=== PATIENT | female | born 1965 | race Caucasian/White ===

== ENCOUNTER 2020-06-15 11:41 | Emergency (ER) | payer OTHER ==
[~2020-06-15] VITALS: Ht 170.2 cm; Wt 77.2 kg
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
[2020-06-15 13:04] LABS: CALCIUM 9.2 mg/dL (8.5-10.1); CREATININE 1.1 mg/dL (0.6-1.0); POTASSIUM 3.3 mmol/L (3.5-5.1)
--- NOTE | 2020-06-15 13:34 | RAD ---
EXAM: Pelvis, single view. HISTORY: Fall. COMPARISON: None. FINDINGS: A frontal view the pelvis is obtained. There is no fracture, dislocation or subluxation. Th e femoral heads are normal in configuration. IMPRESSION: No acute osseous finding. Electronically signed by: Divina Robles MD (06/15/2020 1:31 PM) [id number]
--- NOTE | 2020-06-15 13:34 | RAD ---
XR CHEST 1V History: Reason: FALL / Spl. Instructions: / History: . Pain Comparison: None. Findings: Low lung volumes. Patchy bibasilar opacities. No pleural effusion. No pneumothorax. Prior median ster notomy. Impression: 1. Low lung volumes with patchy bibasilar opacities, likely atelectasis. Electronically signed by: Reilly Hull DO (06/15/2020 1:31 PM) [id number]
[2020-06-15 14:08] VITALS: BP 149/65
--- NOTE | 2020-06-15 15:00 | EKG ---
[address] [address] Test Date: 2020-06-15 Test Time: 12:08:52 Pat Name: jez serrano Department: Room: Gender: F Sleeve Machine Tender: JEANNETTE : 1965 Requested By: GABY HENSON Order Number: [id number] Reading MD: Measurements Intervals [place] Rate: 86 P: 34 TN: 172 QRS: -23 QRSD: 98 T: 140 QT: 418 QTc: 504 Interpretive Statements SINUS RHYTHM LEFTWARD AXIS LVH WITH REPOLARIZATION ABNORMALITY PROLONGED QT ABNORMAL ECG RI6.02 No previous ECG available for comparison
== END 2020-06-15 14:10 | disposition home or self-care (01) ==
LOC: ER 11:41
DX: Z04.3 Encounter for examination and observation following other accident (principal); I25.810 Atherosclerosis of coronary artery bypass graft(s) without angina pectoris; E11.9 Type 2 diabetes mellitus without complications; E78.00 Pure hypercholesterolemia, unspecified; I11.9 Hypertensive heart disease without heart failure; F41.9 Anxiety disorder, unspecified; Z86.73 Personal history of transient ischemic attack (TIA), and cerebral infarction without residual deficits; Z88.0 Allergy status to penicillin; Z88.1 Allergy status to other antibiotic agents; W18.39XA Other fall on same level, initial encounter; Y93.89 Activity, other specified; Y92.89 Other specified places as the place of occurrence of the external cause; Y99.8 Other external cause status
CPT/HCPCS: 36415; 71045; 72170; 80048; 84484; 93005; 99285-25

== ENCOUNTER 2020-08-09 12:32 | Emergency (ER) | payer OTHER ==
[~2020-08-09] VITALS: Ht 170.2 cm; Wt 115.2 kg
--- NOTE | 2020-08-09 12:48 | RAD ---
EXAM: CT Head without IV contrast INDICATION: Reason: stroke / Spl. Instructions: / History: TECHNIQUE: Multi-detector row CT images were obtained of the head without the use of IV contrast. All CT scans performed at this facility utilize dose optimization techniques as appropriate to the exam, including the following: Automated exposure control and adjustment of the mA and/or KV according to patient size (this includes techniques or standardized protocols for targeted exams where dose is ind ication/reason for exam). COMPARISON: None FINDINGS: BRAIN PARENCHYMA: No evidence of acute intraparenchymal hemorrhage or infarct. Generalized parenchyma l volume loss and white matter low density compatible with chronic ischemic microvascular change. Enc ephalomalacia in the paramedian superior right frontal lobe, compatible with a chronic CAL territory infarct. VENTRICLES & EXTRA-AXIAL SPACES: Ventricles are within normal limits. Basilar cisterns are patent. N o pathologic extra-axial fluid collection or mass. ORBITS: Orbital contents are unremarkable. SINUSES: Visualized paranasal sinuses and mastoid air cells are clear. OSSEOUS & SOFT TISSUES: Calvarium and skull base are intact. IMPRESSION: No acute intracranial pathology. FOR INTERNAL CODING PURPOSES Critical result: Findings discussed with Dr. Lisha Agarwal at 08/09/2020 12:43 PM. RESULT CODE: (C) Electronically signed by: Augustine Jordan MD (08/09/2020 12:45 PM) [id number]
[2020-08-09 13:15] LABS: BASO % 0 % (0-3); EOS # 0.3 x10^3/uL (0.0-0.7); EOS % 3 % (0-3); HEMATOCRIT 38.4 % (36.0-47.0); HEMOGLOBIN 12.8 g/dL (12.0-15.5); LYMPH # 1.8 x10^3/uL (1.0-4.8); LYMPH % 18 % (24-48); MEAN CORPUSCULAR HEMOGLOBIN 27 pg (25-35); MEAN CORPUSCULAR HGB CONC 33 g/dL (31-37); MEAN CORPUSCULAR VOLUME 81 fL (79-100); MONO # 0.5 x10^3/uL (0.0-1.1); MONO % 5 % (0-9); NEUT # 7.3 x10^3uL (1.8-7.7); NEUT % 74 % (31-73); PLATELET COUNT 325 x10^3/uL (140-400); RED BLOOD COUNT 4.77 x10^6/uL (3.50-5.40); RED CELL DISTRIBUTION WIDTH 16.3 % (11.5-14.5); WHITE BLOOD COUNT 9.9 x10^3/uL (4.0-11.0)
--- NOTE | 2020-08-09 13:15 | RAD ---
INDICATION: Reason: ALTERED MENTAL STATUS / Spl. Instructions: / History: COMPARISON: June 15, 2020 FINDINGS: Single view of chest obtained. Cardiomediastinal silhouette is enlarged with poststernotomy changes and surgical clips at the medias tinum. Hypoexpanded exam without a definite new region of consolidation. IMPRESSION: * Similar exam compared to prior without a new region of consolidation. Electronically signed by: Catrachito Stovall MD (08/09/2020 1:12 PM) [id number]
[2020-08-09] MEDS ORDERED: IV NORMAL SALINE 1,000ML 1,000 ML IV ONE (13:30)
[2020-08-09] MEDS ORDERED: ONDANSETRON PF 4 MG/2 ML VIAL. ONE (13:59)
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
[2020-08-09] MEDS ORDERED: IOHEXOL 300 MG/ML 75 ML VIAL. IV ONE (14:00)
[2020-08-09] MEDS ORDERED: ONDANSETRON PF 4 MG/2 ML VIAL. IVP ONE (14:00)
[2020-08-09 14:21] LABS: CREATININE 0.6 mg/dL (0.6-1.0); GFR 104.6
[2020-08-09 14:23] LABS: BACTERIA,URINE 0 /HPF (0-FEW); BILIRUBIN,URINE NEG (NEG); CLARITY,URINE CLEAR; COLOR,URINE COLORLESS; GLUCOSE,URINE 500 mg/dL (NEG); NITRITE,URINE NEG (NEG); RBC,URINE 0 /HPF (0-2); UROBILINOGEN,URINE 0.2 mg/dL (0.2 mg/dL); WBC,URINE 0 /HPF (0-4)
[2020-08-09 14:31] LABS: CALCIUM 6.7 mg/dL (8.5-10.1)
[2020-08-09 14:34] LABS: POTASSIUM 2.8 mmol/L (3.5-5.1)
[2020-08-09 14:42] LABS: ALBUMIN 1.5 g/dL (3.4-5.0); ALBUMIN/GLOBULIN RATIO 0.4 (1.0-1.7); MAGNESIUM 1.6 mg/dL (1.8-2.4); TOTAL BILIRUBIN 0.2 mg/dL (0.2-1.0)
--- NOTE | 2020-08-09 14:45 | EKG ---
[address] [address] Test Date: 2020-08-09 Test Time: 12:42:26 Pat Name: EKATERINA SOUTH Department: Room: Gender: F Personal Financial Counselor: JEANNETTE : 1965 Requested By: DOMONIQUE BRISCOE Order Number: [id number] Reading MD: Measurements Intervals [place] Rate: 77 P: 232 MO: 112 QRS: -26 QRSD: 96 T: 138 QT: 380 QTc: 432 Interpretive Statements SINUS RHYTHM LEFTWARD AXIS LVH WITH REPOLARIZATION ABNORMALITY ABNORMAL ECG RI6.02 No previous ECG available for comparison
[2020-08-09] MEDS: POTASSIUM CHLORIDE 20MEQ 100 ML IV SCH ×2 (14:48→16:37)
--- NOTE | 2020-08-09 14:55 | RAD ---
INDICATION: Reason: perineal infection / Spl. Instructions: / History: . COMPARISON: None. TECHNIQUE: Axial CT images obtained through the abdomen and pelvis with contrast. One or more of the following individualized dose reduction techniques were utilized for this examinat ion: 1. Automated exposure control; 2. Adjustment of the mA and/or kV according to patient size; 3 . Use of iterative reconstruction technique. FINDINGS: Postoperative changes to the sternum status post sternotomy. Partial visualization of coronary artery calcific atherosclerosis. Atherosclerotic disease throughout the abdominal aorta without aneurysmal dilatation. Fat-containing left greater than right inguinal hernia. Prominent lymph nodes within the groin bilaterally. Regional low density adjacent to falciform ligament at the liver which is commonly from focal fat. Layering high density material in the gallbladder which could be from stones and sludge. No peripancreatic fluid collection. Prominent lymph nodes at the upper abdomen including portacaval. Lobulation of the spleen. Calcified granuloma within. Subcentimeter suspected fat-containing left renal lesion which could be from causes such as angiomyol ipoma. Urinary bladder is partially distended. No hydronephrosis. Fat-containing umbilical hernia. Uterus is visualized. No periappendiceal inflammatory changes. Small amount haziness to the fact adjacent to the rectal and anal region bilaterally within the perin eum. No drainable fluid collection is seen at this time with some prominence the rectal wall but not very distended. No dilated loops of bowel to suggest obstruction. Degenerative changes of the spine. IMPRESSION: * No evidence of bowel obstruction or appendicitis. * Mild haziness to the fat adjacent to the anorectal region. Nonspecific in nature but would correla te with symptoms given that causes such as proctitis could have this appearance. Electronically signed by: Catrachito Stovall MD (08/09/2020 2:52 PM) [id number]
[2020-08-09] MEDS ORDERED: INSULIN REGULAR 100 UNIT/ML 3ML VIAL. IV ONE (15:30)
[2020-08-09] MEDS ORDERED: METOCLOPRAMIDE HCL 10 MG/2 ML VIAL. ONE (15:37)
[2020-08-09] MEDS ORDERED: METOCLOPRAMIDE HCL 10 MG/2 ML VIAL. IVP ONE (15:45)
[2020-08-09 17:16] VITALS: BP 186/95
[2020-08-09] MEDS ORDERED: FLUCONAZOLE 200MG/100ML PREMIX 100 ML IV SCH (17:45)
[2020-08-09] MEDS ORDERED: VANCOMYCIN 2 GM in IV NORMAL SALINE 500ML 500 ML IV SCH (18:15)
[2020-08-09] MEDS ORDERED: chlorproMAZINE IM 50 MG/2 ML AMPUL IM ONE (18:15)
== END 2020-08-09 18:20 | disposition short-term general hospital (02) ==
LOC: ER 12:32
DX: R41.82 Altered mental status, unspecified (principal); E87.6 Hypokalemia; E11.65 Type 2 diabetes mellitus with hyperglycemia; F41.9 Anxiety disorder, unspecified; I25.810 Atherosclerosis of coronary artery bypass graft(s) without angina pectoris; I11.0 Hypertensive heart disease with heart failure; I50.9 Heart failure, unspecified; E11.9 Type 2 diabetes mellitus without complications; E78.00 Pure hypercholesterolemia, unspecified; Z86.73 Personal history of transient ischemic attack (TIA), and cerebral infarction without residual deficits; Z88.0 Allergy status to penicillin; Z88.1 Allergy status to other antibiotic agents
CPT/HCPCS: 36415; 51702; 70450; 71045; 74177; 80053; 81001; 82803; 82947; 83605; 83735; 83880; 84484; 85025; 93005; 96365; 96366; 96375; 99285; J1450; J1815; J2405; J2765; J3370; J3480; J7030; J7040; Q9967

== ENCOUNTER → 2020-12-06 | Outpatient (CLI) | payer OTHER ==
--- NOTE | 2020-12-06 11:41 | RAD ---
EXAM: RIGHT UPPER QUADRANT ULTRASOUND. HISTORY: Elevated liver enzymes. COMPARISON: None. FINDINGS: Sonographic evaluation of the right upper quadrant was performed. Hyperechogenicity of the hepatic parenchyma is consistent with diffuse hepatic steatosis. The liver i s at least mildly enlarged spanning 18.5 cm. There are no focal lesions. The gallbladder is unremarkable without evidence of stones, wall thickening or pericholecystic fluid. There is no sonographic Spring sign. The common duct measures 4 mm. Limited images of the visualize d portions of the head of the pancreas reveal no abnormality. The right kidney measures 11.0 cm. Cortical thickness and echogenicity are preserved. There is no hyd ronephrosis. The visualized portions of the abdominal aorta and inferior vena cava are grossly patent and normal i n caliber. IMPRESSION: 1. At least mild diffuse hepatic steatosis and hepatomegaly. Electronically signed by: Quinten Pelayo MD (12/06/2020 11:39 AM) [id number]
== END ==
LOC: US 09:33
PROVIDERS: ATTEND Family Medicine
DX: K76.0 Fatty (change of) liver, not elsewhere classified (principal); R16.0 Hepatomegaly, not elsewhere classified; R74.8 Abnormal levels of other serum enzymes
CPT/HCPCS: 76705

== ENCOUNTER 2021-05-17 12:18 | Emergency (ER) | payer OTHER ==
[~2021-05-17] VITALS: Ht 160 cm; Wt 114.0 kg
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
[2021-05-17 13:49] LABS: CREATININE 1.3 mg/dL (0.6-1.0); GFR 42.7
[2021-05-17 13:54] LABS: MAGNESIUM 2.5 mg/dL (1.8-2.4); TOTAL BILIRUBIN 0.4 mg/dL (0.2-1.0); TOTAL PROTEIN 7.3 g/dL (6.4-8.2)
[2021-05-17 14:07] LABS: ALBUMIN 2.3 g/dL (3.4-5.0); ALBUMIN/GLOBULIN RATIO 0.5 (1.0-1.7)
[2021-05-17 14:08] LABS: POTASSIUM 4.4 mmol/L (3.5-5.1)
[2021-05-17 14:18] LABS: BASO # 0.1 x10^3/uL (0.0-0.2); BASO % 1 % (0-3); EOS # 0.2 x10^3/uL (0.0-0.7); EOS % 2 % (0-3); HEMATOCRIT 37.1 % (36.0-47.0); HEMOGLOBIN 12.7 g/dL (12.0-15.5); LYMPH # 2.4 x10^3/uL (1.0-4.8); LYMPH % 19 % (24-48); MEAN CORPUSCULAR HEMOGLOBIN 30 pg (25-35); MEAN CORPUSCULAR HGB CONC 34 g/dL (31-37); MEAN CORPUSCULAR VOLUME 86 fL (79-100); MONO # 0.8 x10^3/uL (0.0-1.1); MONO % 6 % (0-9); NEUT # 9.3 x10^3uL (1.8-7.7); NEUT % 72 % (31-73); PLATELET COUNT 389 x10^3/uL (140-400); RED BLOOD COUNT 4.29 x10^6/uL (3.50-5.40); RED CELL DISTRIBUTION WIDTH 13.5 % (11.5-14.5); WHITE BLOOD COUNT 12.8 x10^3/uL (4.0-11.0)
[2021-05-17 15:08] VITALS: BP 160/106
== END 2021-05-17 15:12 | disposition home or self-care (01) ==
LOC: ER 12:18
DX: I11.0 Hypertensive heart disease with heart failure (principal); I50.9 Heart failure, unspecified; F41.9 Anxiety disorder, unspecified; F32.9 Major depressive disorder, single episode, unspecified; I25.810 Atherosclerosis of coronary artery bypass graft(s) without angina pectoris; E11.9 Type 2 diabetes mellitus without complications; E78.00 Pure hypercholesterolemia, unspecified; Z86.73 Personal history of transient ischemic attack (TIA), and cerebral infarction without residual deficits; Z88.0 Allergy status to penicillin; Z88.1 Allergy status to other antibiotic agents
CPT/HCPCS: 36415; 80053; 83735; 84484; 85025; 99284

== ENCOUNTER 2021-07-01 03:10 | Emergency (ER) | payer OTHER ==
[~2021-07-01] VITALS: Ht 160 cm; Wt 116.6 kg
--- NOTE | 2021-07-01 03:34 | RAD ---
Single view chest dated 07/01/2021 3:31 AM: COMPARISON: 08/09/2020 Clinical Indication: Chest wall discomfort. Findings: Single upright portable exam of the chest was performed. Heart and mediastinal contours are stable. P atient is status post median sternotomy. Lungs are clear. No consolidation or pleural effusion. No pn eumothorax. Coarsened perihilar linear markings, unchanged. IMPRESSION: No acute radiographic abnormality. Stable findings compared to 08/09/2020. Electronically signed by: Juliano Ramirez MD (07/01/2021 3:32 AM) LUIS FERNANDO
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
[2021-07-01] MEDS ORDERED: ASPIRIN ENTERIC COATED 325 MG TABLET.DR. PO ONE (03:45)
[2021-07-01] MEDS ORDERED: hydrALAZINE 20 MG/ML VIAL. IV ONE (03:45)
--- NOTE | 2021-07-01 05:20 | EKG ---
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
[2021-07-01 05:36] LABS: BASO # 0.2 x10^3/uL (0.0-0.2); BASO % 1 % (0-3); EOS # 0.4 x10^3/uL (0.0-0.7); EOS % 3 % (0-3); HEMATOCRIT 36.7 % (36.0-47.0); HEMOGLOBIN 12.1 g/dL (12.0-15.5); LYMPH # 2.4 x10^3/uL (1.0-4.8); LYMPH % 19 % (24-48); MEAN CORPUSCULAR HEMOGLOBIN 28 pg (25-35); MEAN CORPUSCULAR HGB CONC 33 g/dL (31-37); MEAN CORPUSCULAR VOLUME 85 fL (79-100); MONO # 0.6 x10^3/uL (0.0-1.1); MONO % 5 % (0-9); NEUT # 9.1 x10^3uL (1.8-7.7); NEUT % 72 % (31-73); PLATELET COUNT 344 x10^3/uL (140-400); RED BLOOD COUNT 4.31 x10^6/uL (3.50-5.40); RED CELL DISTRIBUTION WIDTH 13.9 % (11.5-14.5); WHITE BLOOD COUNT 12.7 x10^3/uL (4.0-11.0)
[2021-07-01 05:45] LABS: ANION GAP 13 (6-14); BLOOD UREA NITROGEN 17 mg/dL (7-20); BUN/CREATININE RATIO 11 (6-20); CALCIUM 8.4 mg/dL (8.5-10.1); CARBON DIOXIDE 19 mmol/L (21-32); CHLORIDE 111 mmol/L (98-107); CREATININE 1.6 mg/dL (0.6-1.0); GFR 33.6; GLUCOSE 119 mg/dL (70-99); POTASSIUM 3.5 mmol/L (3.5-5.1); SODIUM 143 mmol/L (136-145)
[2021-07-01 05:50] LABS: INFLUENZA A PATIENT NEGATIVE (NEGATIVE); INFLUENZA B PATIENT NEGATIVE (NEGATIVE)
[2021-07-01 06:02] LABS: ALBUMIN 2.3 g/dL (3.4-5.0); ALBUMIN/GLOBULIN RATIO 0.6 (1.0-1.7); ALK PHOS 182 U/L (46-116); ALT (SGPT) 16 U/L (14-59); AST (SGOT) 16 U/L (15-37); TOTAL BILIRUBIN 0.3 mg/dL (0.2-1.0); TOTAL PROTEIN 5.9 g/dL (6.4-8.2)
--- NOTE | 2021-07-01 06:46 | RAD ---
CT head without contrast dated 07/01/2021 6:42 AM Comparison: 08/09/2020. CLINICAL INDICATION: Slurred speech TECHNIQUE: Contiguous axial imaging of the head was performed from skull base to vertex. One or more of the following individualized dose reduction techniques were utilized for this examinat ion: 1. Automated exposure control 2. Adjustment of the mA and/or kV according to patient size 3. Use of iterative reconstruction technique. FINDINGS: Ventricles and sulci are mildly prominent for age. No midline shift or mass effect. Mild patchy low d ensity in the deep/subcortical periventricular white matter. Small remote appearing infarct of the pa rasagittal right frontal lobe near the vertex. There is also a tiny remote appearing infarct of the p arasagittal right parietal lobe near the vertex. No hemorrhage or extra-axial collection. Posterior f armando and brainstem unremarkable. Visualized paranasal sinuses and mastoid air cells are clear. No apparent calvarial abnormality. IMPRESSION: 1. No evidence of acute intracranial hemorrhage or mass. 2. Mild chronic small vessel ischemic changes and atrophy. There are small remote cortical infarcts o f the parasagittal right frontal and right parietal lobe, unchanged. Electronically signed by: Juliano Ramirez MD (07/01/2021 6:43 AM) [facility]
[2021-07-01 06:50] LABS: BACTERIA,URINE FEW /HPF (0-FEW); BILIRUBIN,URINE NEG (NEG); CLARITY,URINE HAZY; COLOR,URINE YELLOW; GLUCOSE,URINE 250 mg/dL (NEG); NITRITE,URINE NEG (NEG); SQUAMOUS EPITHELIAL CELL,UR FEW /LPF; UROBILINOGEN,URINE 0.2 mg/dL (0.2 mg/dL); WBC,URINE 0 /HPF (0-4)
[2021-07-01] MEDS ORDERED: FURO-68 PO (07:51)
[2021-07-01] MEDS ORDERED: POTASSIUM CHLORIDE 20 MEQ TABLET.ER. PO ONE (08:15)
[2021-07-01] MEDS ORDERED: FUROSEMIDE 40 MG/4 ML VIAL IVP ONE (08:15)
[2021-07-01 09:30] VITALS: BP 187/97
== END 2021-07-01 09:45 | disposition home or self-care (01) ==
LOC: ER 03:10
DX: R53.1 Weakness (principal); R79.89 Other specified abnormal findings of blood chemistry; I11.0 Hypertensive heart disease with heart failure; I50.9 Heart failure, unspecified; E11.9 Type 2 diabetes mellitus without complications; E78.5 Hyperlipidemia, unspecified; Z86.73 Personal history of transient ischemic attack (TIA), and cerebral infarction without residual deficits; Z20.822 Contact with and (suspected) exposure to COVID-19; Z88.0 Allergy status to penicillin; Z88.1 Allergy status to other antibiotic agents
CPT/HCPCS: 36415; 70450; 71045; 80053; 81001; 82553; 83605; 83735; 83880; 84484; 85025; 85610; 85730; 93005; 96374; 96375; 99285; C9803; J0360; J1940; J3010; U0003; 87428

== ENCOUNTER 2021-09-05 07:43 | Emergency (ER) | payer OTHER ==
[~2021-09-05] VITALS: Ht 160 cm; Wt 116.6 kg
[~2021-09-05 07:43] MED LIST: FURO-68 PO
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
[2021-09-05 08:43] LABS: BASO # 0.1 x10^3/uL (0.0-0.2); BASO % 1 % (0-3); EOS % 0 % (0-3); HEMATOCRIT 43.3 % (36.0-47.0); HEMOGLOBIN 14.4 g/dL (12.0-15.5); LYMPH # 1.2 x10^3/uL (1.0-4.8); LYMPH % 13 % (24-48); MEAN CORPUSCULAR HEMOGLOBIN 30 pg (25-35); MEAN CORPUSCULAR HGB CONC 33 g/dL (31-37); MEAN CORPUSCULAR VOLUME 90 fL (79-100); MONO # 0.5 x10^3/uL (0.0-1.1); MONO % 5 % (0-9); NEUT # 7.8 x10^3uL (1.8-7.7); NEUT % 81 % (31-73); PLATELET COUNT 294 x10^3/uL (140-400); RED BLOOD COUNT 4.81 x10^6/uL (3.50-5.40); RED CELL DISTRIBUTION WIDTH 15.5 % (11.5-14.5); WHITE BLOOD COUNT 9.6 x10^3/uL (4.0-11.0)
[2021-09-05 08:46] LABS: CALCIUM 10.1 mg/dL (8.5-10.1); CREATININE 2.4 mg/dL (0.6-1.0); POTASSIUM 4.5 mmol/L (3.5-5.1)
[2021-09-05 08:52] LABS: MAGNESIUM 2.6 mg/dL (1.8-2.4); PHOSPHORUS 5.7 mg/dL (2.6-4.7)
[2021-09-05 09:00] VITALS: BP 186/90
[2021-09-05] MEDS ORDERED: IV NORMAL SALINE 1,000ML 1,000 ML IV ONE (09:00)
--- NOTE | 2021-09-05 10:02 | RAD ---
CT HEAD AND C-SPINE WO Date: 09/05/2021 8:47 AM Clinical Indication: Reason: fall / Spl. Instructions: / History: Comparison: CT head from 07/01/2021 dating back to 08/09/2020. Technique: 5 mm axial tomographic images were obtained of the head without contrast. These were view ed on brain and bone windows. Noncontrast CT of the cervical spine was performed. Sagittal and norwood l reformats were performed and evaluated. One or more of the following dose reduction techniques were utilized: Automated exposure control (AEC), Adjustment of mA and/or kV according to patient size, Us e of iterative reconstruction technique such as ASiR, CT scan done according to ALARA and image gentl y/image wisely HEAD FINDINGS: Similar mild generalized cerebral and cerebellar volume loss. Similar moderate nonspecific periventri cular hypoattenuation, most commonly seen with chronic small vessel ischemic disease. Similar remote appearing infarct of the of the right frontal lobe near the vertex. Additional tiny remote appearing infarct of the right parietal lobe also near the vertex. No intra- or extra-axial mass or fluid collection. No acute hemorrhage. The ventricles are normal in size, shape, and morphology. The carroll-white matter junction is normal. The basilar cisterns are paten t. Trace mucosal thickening of the left maxillary sinus. Remaining paranasal sinuses are clear.. The vi sualized portions of the orbits and globes are normal. The mastoid air cells are clear. No aggressive osseous lesion or fracture. Soft tissues are grossly unremarkable. CERVICAL SPINE FINDINGS: The cervical spine is normally aligned. No acute fracture. No aggressive lytic or blastic osseous les ions. Mild multilevel degenerative disc space height loss. Multilevel mild spinal canal stenosis secondary to disc protrusions and marginal osteophytes. Multilevel mild neuroforaminal narrowing secondary to u ncovertebral arthrosis. Multilevel mild facet arthrosis. Small subcentimeter hypoattenuating nodules seen in both lobes. No follow-up is indicated.. No cervic al lymphadenopathy. Bilateral carotid atherosclerosis. The visualized aerodigestive tract is normal. The visualized portions of the lungs are clear. IMPRESSION: 1. No acute intracranial process. 2. No acute cervical spine fracture. 3. Overall similar mild to moderate chronic small vessel ischemic changes and atrophy. Similar appear ance of small or remote cortical infarcts of the right frontal and right parietal lobes. Electronically signed by: Nader Felder DO (09/05/2021 9:06 AM) [id number]
--- NOTE | 2021-09-05 10:02 | RAD ---
Single view chest dated 09/05/2021 9:08 AM: COMPARISON: 07/01/2021 Clinical Indication: Cough. Fall. Weakness Findings: Single upright portable exam of the chest was performed. Heart and mediastinal contours are stable. P atient is status post median sternotomy. Mild elevation of right hemidiaphragm, unchanged. Lungs are clear. No pleural effusion or pneumothorax. IMPRESSION: No acute radiographic abnormality. Stable findings compared to 07/01/2021. Electronically signed by: Juliano Ramirez MD (09/05/2021 9:16 AM) [id number]
[2021-09-05 10:17] LABS: CLARITY,URINE CLOUDY; COLOR,URINE YELLOW; GLUCOSE,URINE NEG (NEG)
[2021-09-05 10:18] LABS: BACTERIA,URINE MANY /HPF (0-FEW); NITRITE,URINE NEG (NEG); UROBILINOGEN,URINE 0.2 mg/dL (0.2 mg/dL); WBC,URINE TNTC /HPF (0-4); YEAST,URINE PRESENT /HPF
[2021-09-05] MEDS ORDERED: CEPHALEXIN 250 MG CAPSULE PO ONE (10:30)
[2021-09-05 10:57] LABS: CALCIUM 9.8 mg/dL (8.5-10.1); CREATININE 2.1 mg/dL (0.6-1.0); GFR 24.5; POTASSIUM 4.4 mmol/L (3.5-5.1)
[2021-09-05] MEDS ORDERED: CEPH500C PO (11:15)
--- NOTE | 2021-09-05 20:12 | EKG ---
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
== END 2021-09-05 12:20 | disposition home or self-care (01) ==
LOC: ER 07:43
DX: E11.22 Type 2 diabetes mellitus with diabetic chronic kidney disease (principal); I13.0 Hypertensive heart and chronic kidney disease with heart failure and stage 1 through stage 4 chronic kidney disease, or unspecified chronic kidney disease; N18.9 Chronic kidney disease, unspecified; I50.9 Heart failure, unspecified; N39.0 Urinary tract infection, site not specified; F41.9 Anxiety disorder, unspecified; I25.810 Atherosclerosis of coronary artery bypass graft(s) without angina pectoris; E78.00 Pure hypercholesterolemia, unspecified; Z86.73 Personal history of transient ischemic attack (TIA), and cerebral infarction without residual deficits; Z88.0 Allergy status to penicillin; Z88.1 Allergy status to other antibiotic agents; W18.39XA Other fall on same level, initial encounter; Y93.89 Activity, other specified; Y92.128 Other place in nursing home as the place of occurrence of the external cause; Y99.8 Other external cause status
CPT/HCPCS: 36415; 70450; 71045; 72125; 80048; 81001; 82550; 83735; 84100; 84484; 85025; 87086; 93005; 96360; 99285; J7030

== ENCOUNTER 2021-09-19 18:55 | Emergency (ER) | payer OTHER ==
[~2021-09-19] VITALS: Ht 160 cm; Wt 116.6 kg
[~2021-09-19 18:55] MED LIST changes: +CEPH500C PO
[2021-09-19] MEDS ORDERED: IV RINGERS SOLUTION,LACTATED 1,000 ML IV SCH (19:00)
[2021-09-19] MEDS ORDERED: ASPIRIN 325 MG TABLET PO ONE (19:00)
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
[2021-09-19 20:02] LABS: BACTERIA,URINE 0 /HPF (0-FEW); CLARITY,URINE TURBID; COLOR,URINE YELLOW; GLUCOSE,URINE NEG (NEG); NITRITE,URINE NEG (NEG); SQUAMOUS EPITHELIAL CELL,UR MOD /LPF; UROBILINOGEN,URINE 0.2 mg/dL (0.2 mg/dL); WBC,URINE >40 /HPF (0-4)
[2021-09-19 20:03] LABS: AMORPHOUS SEDIMENT,UR PRESENT /HPF; HYALINE CASTS, URINE FEW /HPF; YEAST,URINE PRESENT /HPF
[2021-09-19 20:20] LABS: AMPHETAMINE/METHAMPHETAMINE NEG (NEG); BARBITURATES NEG (NEG); BENZODIAZEPINES NEG (NEG); CANNABINOIDS NEG (NEG); COCAINE NEG (NEG); METHADONE NEG (NEG); OPIATES POS (NEG); PHENCYCLIDINE NEG (NEG)
[2021-09-19 20:25] LABS: BASO # 0.1 x10^3/uL (0.0-0.2); BASO % 1 % (0-3); EOS % 0 % (0-3); HEMATOCRIT 38.7 % (36.0-47.0); HEMOGLOBIN 12.6 g/dL (12.0-15.5); LYMPH # 1.3 x10^3/uL (1.0-4.8); LYMPH % 8 % (24-48); MEAN CORPUSCULAR HEMOGLOBIN 29 pg (25-35); MEAN CORPUSCULAR HGB CONC 32 g/dL (31-37); MEAN CORPUSCULAR VOLUME 90 fL (79-100); MONO # 0.9 x10^3/uL (0.0-1.1); MONO % 6 % (0-9); NEUT # 13.4 x10^3uL (1.8-7.7); NEUT % 85 % (31-73); PLATELET COUNT 362 x10^3/uL (140-400); RED CELL DISTRIBUTION WIDTH 15.4 % (11.5-14.5); WHITE BLOOD COUNT 15.8 x10^3/uL (4.0-11.0)
--- NOTE | 2021-09-19 20:49 | RAD ---
AP chest. HISTORY: Dyspnea AP view was taken of the chest. Comparison is made with a study from September 05. Patient previous bypas s. Patient's taken a poor inspiration. There is elevation the right diaphragm which is chronic. There are no acute infiltrates. There is no effusion. This been no change. IMPRESSION: 1. Elevated right diaphragm. 2. No new infiltrates. Electronically signed by: Jesus Ramírez MD (09/19/2021 8:47 PM) [facility]
[2021-09-19] MEDS ORDERED: IV NORMAL SALINE 50ML 50 ML ONE (20:56)
[2021-09-19] MEDS ORDERED: cefTRIAXone SODIUM 1 GM VIAL ONE (20:56)
[2021-09-19 21:35] LABS: % LYMPHS 13 % (24-48); % MONOS 10 % (0-10); % SEGS 77 % (35-66)
[2021-09-19 21:36] LABS: ANISOCYTOSIS SLIGHT; PLATELET CLUMP PRESENT; PLT ESTIMATE ADEQUATE (ADEQUATE)
[2021-09-19 21:38] LABS: CALCIUM 9.4 mg/dL (8.5-10.1); GFR 11.7; POTASSIUM 4.5 mmol/L (3.5-5.1)
[2021-09-19 21:50] LABS: DIRECT BILIRUBIN 0.1 mg/dL (0.0-0.2); MAGNESIUM 2.7 mg/dL (1.8-2.4); TOTAL BILIRUBIN 0.5 mg/dL (0.2-1.0); TOTAL PROTEIN 7.5 g/dL (6.4-8.2)
[2021-09-19] MEDS ORDERED: ONDANSETRON PF 4 MG/2 ML VIAL. IVP ONE (22:30)
[2021-09-19] MEDS ORDERED: MORPHINE SULFATE 10 MG/ML SYRINGE. SQ ONE (22:30)
[2021-09-20] MEDS ORDERED: CIPROFLOXACIN 400MG PREMIX 200 ML IV ONE (01:00)
[2021-09-20] MEDS ORDERED: CIPROFLOXACIN HCL 500 MG TABLET PO ONE (02:00)
[2021-09-20 03:47] LABS: INFLUENZA A PATIENT NEGATIVE (NEGATIVE); INFLUENZA B PATIENT NEGATIVE (NEGATIVE)
[2021-09-20 04:15] VITALS: BP 130/72
--- NOTE | 2021-09-20 06:37 | EKG ---
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
[2021-09-20 19:42] LABS: CHOLESTEROL/HDL RATIO 2.8; THYROID STIM HORMONE (TSH) 0.621 uIU/mL (0.358-3.740)
== END 2021-09-20 04:15 | disposition short-term general hospital (02) ==
LOC: ER 18:55
DX: E11.22 Type 2 diabetes mellitus with diabetic chronic kidney disease (principal); I13.0 Hypertensive heart and chronic kidney disease with heart failure and stage 1 through stage 4 chronic kidney disease, or unspecified chronic kidney disease; N18.9 Chronic kidney disease, unspecified; I50.9 Heart failure, unspecified; N17.9 Acute kidney failure, unspecified; R79.1 Abnormal coagulation profile; D72.829 Elevated white blood cell count, unspecified; R79.89 Other specified abnormal findings of blood chemistry; N39.0 Urinary tract infection, site not specified; R07.89 Other chest pain; F41.9 Anxiety disorder, unspecified; I25.810 Atherosclerosis of coronary artery bypass graft(s) without angina pectoris; E78.00 Pure hypercholesterolemia, unspecified; F32.9 Major depressive disorder, single episode, unspecified; Z20.822 Contact with and (suspected) exposure to COVID-19; Z86.73 Personal history of transient ischemic attack (TIA), and cerebral infarction without residual deficits; Z88.0 Allergy status to penicillin; Z88.1 Allergy status to other antibiotic agents
CPT/HCPCS: 36415; 71045; 80048; 80061; 80076; 80307; 81001; 82550; 83690; 83735; 83880; 84443; 84484; 85007; 85025; 85379; 85610; 85730; 87086; 87106; 87428; 87491; 87591; 93005; 96365; 96366; 96372; 96375; 99285; J0696; J2270; J2405; J7120